=== PATIENT | female | born 1995 | race Caucasian/White ===

== ENCOUNTER 2024-12-27 19:25 | Emergency (ER) | payer OTHER, SELFPAY ==
--- OUTSIDE RECORDS SUMMARY | 2024-12-27 19:27 | XMS_ITS | Clinical Summary ---
Author Organization [facility] Care Team Providers Care Vp Production Name Role Phone Unavailable Primary Care Provider Unavailabl e Social History Tobacco Use Types Packs/Day Years Used Date Smoking Tobacco: Never Assessed Comments Unknown Sex and Gender Information Value Date Recorded Sex Assigned at Not on file Legal Sex Female 2:23 PM RECEIVING SUPERVISOR Gender Identity Not on file Sexual Orientation Not on file Plan of Treatment Health Maintenance Due Date Last Done Comments Hepatitis C Virus (HCV) Screening 1996 TdaP Immunization 1996 Hepatitis B Immunization (1 of 3 - 19+ 3-dose series) 08/27/2015 Pap Smear 2017 Influenza Immunization (#1) 2024 SARS-COV-2 Immunization ( season) 2024 Respiratory Syncytial Virus (RSV) Immunization (Adult) (1 - 1-dose 75+ series) 08/27/2071 Meningococcal Immunization (ACWY) Aged Out No longer eligible based on patient's age to complete this topic Pneumococcal Immunization Combined Aged Out No longer eligible based on patient's age to complete this topic Rotavirus Immunization Aged Out No lo nger eligible based on patient's age to complete this topic
--- OUTSIDE RECORDS SUMMARY | 2024-12-27 19:27 | XMS_ITS | Clinical Summary ---
Author Organization [facility] Address [address] [place] [address] Phone Care Team Providers Care Laundry Superintendent Name Role Phone Duy Hough MD Primary Care Provider +1- [phone] Allergies Active Allergy Reactions Criticality Noted Date Comments Cefprozil Hives High 02/10/2013 Medications escitalopram (LEXAPRO) 10 mg Oral tablet Take 15 mg by mouth daily. Active cetirizine (ZYRTEC) 10 mg Oral tablet Take 10 mg by mouth daily. Active Levonorgestrel- Ethinyl Estrad 0.15-30 mg-mcg Tablet, Dose Pack, 3 Months 4 Active FLUTICASONE PROPIONATE (FLONASE BOTH NOSTRIL) Administer in each nostril Continuous as needed. 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 Gender Identity Not on file Sexual Orientation Not on file Last Filed Vital Signs Vital Sign Reading Time Taken Comments Blood Pressure 108/64 12/10/2013 2:52 PM CDT Pulse 80 02/10/2013 3:58 AM CDT Temperature 37.1 C (98.8 F) 02/10/2013 3:58 AM CDT Respiratory Rate 16 02/10/2013 3:58 AM CDT Oxygen Saturation 96% 02/10/2013 3:58 AM CDT Inhaled Oxygen Concentration - - Weight 57.6 kg (127 lb) 12/10/2013 2:52 PM CDT Height 165.1 cm (5' 5) 12/10/2013 2:52 PM CDT Body Mass Index 21.13 12/10/2013 2:52 PM CDT Plan of Treatment Health Maintenance Due Date Last Done Comments DTAP/TDAP/TD VACCINES (1 - Tdap) 08/27/2015 HEPATITIS B VACCINES (1 of 3 - 19+ 3-dose series) 08/27/2015 CERVICAL CANCER SCREENING 2017 HPV/Cotest (21-29) 2017 PAP SMEAR 2017 INFLUENZA VACCINE (#1) 2025 HPV VACCINES Aged Out No longer eligi ble based on patient's age to complete this topic Insurance [facility] [id number] [address] [place] OPEN ACCESS Care Teams Laundry Superintendent Relationship Specialty Start Date End Date Duy Hough MD PCP - General Pediatrics 11/13/12
--- OUTSIDE RECORDS SUMMARY | 2024-12-27 19:27 | XMS_ITS | Clinical Summary ---
Author Organization [facility] Address [address] [place] [address] Care Team Providers Care Tobacco Prizer Name Role Phone Paz Oneill APRN-PACKAGING SPECIALIST Primary Care Provider + Source Comments [facility],non[facility] Affiliates and Associated Physician Practices is amultiple site organization consisting of ambulatory clinics and hospital sitesin [place], [place], [place] and [place]. This disclosure is being madepursuant to the Care Everywhere program and may not contain all information available regarding this patient. Last updated 18.[facility] Allergies Active Allergy Reactions Criticality Noted Date Comments Cefprozil Rash Low 09/19/2012 Medications * This document contains information received from the source organization and may not represent a complete record from that organization. * Be aware that medications may not be up to date on this document. Alwaysverify current medications with the patient. cetirizine (ZYRTEC) 10 MG tablet Take 1 (one) tablet by mouth once daily Active 1-20 MG-MCG(24) tablet Take 1 (one) tablet by mouth once daily 03/06/20 23 Active gabapentin (Neurontin) 300 MG capsuleIndicatio ns:Fibromyalgia Syndrome Take 1 (one) capsule to 2 (two) capsules by mouth every morning AND 1 (one) capsule to 2 (two) capsules every afternoon. Reasons: Fibromyalgia Syndrome. 120 capsule 5 11/27/19 24 Active levothyroxine (Synthroid) 100 MCG tabletIndication s:Hypothyroidism , unspecified type levothyroxine 100 mcg tablet TAKE 1 TABLET BY MOUTH EVERY DAY 90 tablet 03/04/20 24 Active ALPRAZolam (Xanax) 1 MG tablet Take 1 (one) tablet by mouth 3 times daily as needed 03/28/20 24 Active traMADol (Ultram) 50 MG tabletIndication s:Primary fibromyalgia syndrome May take 0.5 (one-half) tablet to 1 (one) tablet by mouth 2 times daily as needed for Pain. May also take 1 (one) tablet nightly as needed for Pain. 04/25/20 24 Active QUEtiapine (SEROquel) 25 MG tabletIndication s:Bipolar II disorder (HCC) Take 1 (one) tablet by mouth at bedtime Along with 100mg tablet for total daily dose of 125mg 90 tablet 11/19/19 25 Active buPROPion SR 12hr (Wellbutrin-SR) 100 MG tabletIndication s:Depressive Phase Bipolar Mood Disorder,Major Depressive Disorder Take 1 (one) tablet by mouth every morning Replaces use of 75 mg tablets. Reasons: Depressive Phase of Manic-Depression, Major Depressive Disorder 30 tablet 11/21/19 25 Active QUEtiapine (SEROquel) 100 MG tabletIndication s:Bipolar Mood Disorder Take 1 (one) tablet by mouth at bedtime Along with 25mg tablet for total daily dose of 125mg Reasons: Manic-Depression 90 tablet 11/21/19 25 Active traZODone (Desyrel) 100 MG tabletIndication s:Insomnia Take 1.5 (one and one-half) tablets by mouth at bedtime Reasons: Trouble Sleeping 135 tablet 11/29/19 25 Active traZODone (Desyrel) 100 MG tabletIndication s:Insomnia Take 1.5 (one and one-half) tablets by mouth at bedtime Reasons: Trouble Sleeping 135 tablet 09/04/19 25 025 Discontin ued(Reord er) Active Problems Problem Noted Date Diagnosed Date Primary fibromyalgia syndrome 01/17/2022 Overview (01/17/2022): Clinically suspect possible fibromyalgia syndrome for musculoskeletal pain symptoms, fatigue and non restorative sleep. Try duloxetine in place of sertraline. Bipolar II disorder 10/10/2018 Overview (10/10/2018): Was diagnosed during neuropsych testing by Dr. 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 Overview (10/10/2018): Overview: Description: high TPO and Tg Ab Hypothyroidism 07/17/2014 Overview (03/19/2015): 05/07/2014 - [facility] - Na 138 mmol/L, K 3.9 mmol/L, Cl 105 mmol/L, CO2 19 mmol/L, BUN 9 mg/dL, creatinine 0.64 mg/dL, glucose 89 mg/dL, calcium 9.2 mg/dL, alkaline phosphatase 64 U/L, SGOT (AST) 12 U/L, SGPT (ALT) 8 U/L, total protein 6.8 g/dL, albumin 4.2 g/dL, total bilirubin 0.3 mg/dL; tissue transglutaminase antibody 1 U (< 4), free T4 1.1 ng/dL (0.9-1.4), TSH 4.59 uIU/L (0.5-4.3); ESR 6 mm/hr; WBC 6.2 K, hemoglobin 11.8 g/dL, hematocrit 37.8 %, ples 340 K; 05/13/14 - [facility] - TSH 5.34 uIU/mL (0.45-4.50) Assessment & Plan (07/17/2014 3:37 PM ARTIST'S MODEL): Etiology unclear. 1. L-thyroxine 0.025 mg daily. 2. Obtain serum thyroid autoantibodies (thyroid peroxidase & thyroglobulin) - rule out evolving autoimmune thyroiditis. 3. I will contact Nanda Singh's mother by telephone (number: [phone]) with the test results after I have received them and make the necessary medication dose adjustments. 4. See website: [email or web address].org for patient information handouts - Hypothyroidism 5. I reviewed my provisional impressions and recommendations with mother and she was in agreement. 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 Still having significant cramping which interferes with day to day living. Starts 3 days prior to period and lasting for 3 days. Mother has hx of endometriosis Plan: Refer to ob-packaging specialist for evaluation and work-up of possible endometriosis Anxiety 09/19/2012 Assessment & Plan (07/31/2013 4:44 PM ARTIST'S MODEL): Feels that anxiety is currently well controlled. Plan: Continue current therapy Resolved Problems Problem Noted Date Diagnosed Date Resolved Date Tremor 03/17/2022 08/12/2024 Overview (03/17/2022): May be anxiety related and less likely due to use of SSRI medication +trazodone. Suggest neurology evaluation. High risk medications (not a nticoagulants) long-term use 11/06/2018 05/23/2024 Chronic rhinitis 11/12/2015 08/12/2024 Rash and nonspecific skin eruption 01/24/2014 05/23/2024 Acne vulgaris 09/19/2012 05/23/2024 Encounters Date Type Department Care Team Description 11/28/2024 Refill [facility] - Rheumatology [address], [address] [place] [address] Jesus Lai, DO MEDICATION REFILL 11/20/2024 Refill [facility] - Rheumatology [address] [place] [address], [address] [place] [address] Jesus Lai DO MEDICATION REFILL 11/18/2024 Refill [facility] - Rheumatology [address] [place] [address], [address] [place] [address] Jesus Lai DO MEDICATION REFILL 11/04/2024 11:20 AM CDT Office Visit [facility] Rheumatology [address] [place] [address], [address] [place] [phone] Jesus Lai DO Primary fibromyalgia syndrome (Primary Dx); Severe episode of recurrent major depressive disorder, without psychotic features (HCC) 10/24/2024 Refill [facility] Rheumatology [address] [place] [address], [address] [place] [phone] Jesus Lai DO MEDICATION REFILL from Last 3 Months Immunizations Immunization Administration Dates Next Due Human Papilloma Virus Quadrivalent Vaccine 07/31,11/14/2012 Family History Medical History Relation Name Comments Thyroid Disease Maternal Aunt goiter, hyp othyroidism CAD (Coronary Artery Disease) Maternal Grandfather Lupus Maternal Grandfather Thyroid Disease Maternal Grandfather Cancer Maternal Grandmother Asthma Mother Endometriosis Mother Thyroid Disease Mother CAD (Coronary Artery Disease) Paternal Grandfather Arthritis - Rheumatoid Paternal Grandmother Relation Name Status Comments Maternal Aunt Maternal Grandfather Maternal Grandmother Mother Paternal Grandfather Paternal Grandmother Social History Tobacco Use Types Packs/Day Years Used Date Smoking Tobacco: Never Smokeless Tobacco: Never Tobacco Cessation:Counseling Given: Not Answered Alcohol Use Standard Drinks/Week Comments Yes 12 (1 standard drink = 0.6 oz pu re alcohol) PHQ-2 Answer Date Recorded Patient Health Questionnaire-2 Score 1 11/04/2024 Comments No Sex and Gender Information Value Date Recorded Sex Assigned at Not on file Legal Sex Female 9:12 AM CDT Gender Identity Not on file Sexual Orientation Not on file Last Filed Vital Signs Vital Sign Reading Time Taken Comments Blood Pressure 112/70 11/04/2024 11:11 AM CDT Pulse 87 11/04/2024 11:11 AM CDT Temperature 36.1 C (97 F) 11/04/2024 11:11 AM CDT Respiratory Rate 16 11/04/2024 11:11 AM CDT Oxygen Saturation 98% 11/04/2024 11:11 AM CDT Inhaled Oxygen Concentration - - Weight 56.7 kg (125 lb) 11/04/2024 11:11 AM CDT Height 165.1 cm (5' 5) 04/25/2024 8:15 AM ARTIST'S MODEL Body Mass Index 20.8 04/25/2024 8:15 AM ARTIST'S MODEL Plan of Treatment Upcoming Encounters Date Type Department Care Team (Late st Contact Info) Description 02/04/2025 8:00 AM CDT Office Visit [facility] - Rheumatology [address], [address] [place] [address] Jesus Lai DO [address] [place] [address] Health Maintenance Due Date Last Done Comments HPV VACCINE (3 - 3-dose series) 10/23/2013 07/31/2013, 11/14/2012 HEPATITIS C SCREENING 08/22/2014 DTAP/TDAP/TD VACCINES (1 - Tdap) 08/27/2015 HEPATITIS B VACCINE (1 of 3 - 19+ 3-dose series) 08/27/2015 PAP SMEAR 2017 COVID-19 VACCINE (1 - season) 2024 INFLUENZA VACCINE (#1) 2025 5, 06/19/2014, 05/07/2014, Additional history exists ZOSTER VACCINE (1 of 2) 2046 HIV SCREENING Completed 05/09/2017 HIB VACCINE Aged Out No longer eligi ble based on patient's age to complete this topic MENINGOCOCCAL (Group B) VACCINE SHARED DECISION-MAKING Aged Out No longer eligible based on patient's age to complete this topic MENINGOCOCCAL GROUPS A/C/Y/W VACCINE Aged Out No longer eligible based on patient's age to complete this topic PNEUMOCOCCAL VACCINE Aged Out No long er eligible based on patient's age to complete this topic Procedures Procedure Name Priority Date/Time Associated Diagnosis Comments HIV-1 HIV-2 ANTIBODY W REFLX Routine 05/09/2017 3:51 PM ARTIST'S MODEL from Last 3 Months or Most Recently Relevant to Health Maintenance Results * HIV-1 HIV-2 ANTIBODY W REFLX (05/09/2017 3:51 PM ARTIST'S MODEL) HIV 1 Antibody Negative Negative [facility] HIV-2 Antibody Negative Negative [facility] Comment: Negative for HIV-1 and HIV-2 antibodies See RNA Reflex. Blood specimen (specimen) BLOOD SPECIMEN / Unknown 05/09/2017 3:51 PM ARTIST'S MODEL 05/09/2017 Narrative [facility] - 05/13/2017 8:07 PM ARTIST'S MODEL Performed at: - [facility] [address], [place] [id number] French Edge Operator: Justin Fuentes PhD, Phone: [phone] us Gabriela Guzman MD LAB - SEROLOGY ORDERABLES Final Result Performing Organization Address City/State/[facility] Co de Phone Number [facility] [address] [place] [address], [facility] from Last 3 Months or Most Recently Relevant to Health Maintenance Insurance [place] [id number] [facility] [place] [address] Care Teams Tobacco Prizer Relationship Specialty Start Date End Date Paz Oneill, CHIEF RESOURCE OFFICER-PACKAGING SPECIALIST [address] [place] [address] PCP - General Nurse Practitioner Family 09/09/24
[2024-12-27 19:44] VITALS: BP 121/97; PULSE 82; RESP 15; TEMP 36.5; O2SAT 99
--- NOTE | 2024-12-27 21:28 | PC.NURSE ---
PT STATES HER HAND FEELS BETTER AND SHE WISHES TO LEAVE PRIOR TO EXAMINATION
--- OUTSIDE RECORDS SUMMARY | 2024-12-27 21:51 | XMS_ITS | Clinical Summary ---
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
--- OUTSIDE RECORDS SUMMARY | 2024-12-27 21:51 | XMS_ITS | Clinical Summary ---
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
--- OUTSIDE RECORDS SUMMARY | 2024-12-27 21:51 | XMS_ITS | Clinical Summary ---
Author Organization [facility] Address [address] [facility] [place] [address] Care Team Providers Care Bag Worker Name Role Phone Paz Oneill APRN-UNDERCOVER AGENT Primary Care Provider + Source Comments [facility] Affiliates and Associated Physician Practices is amultiple site organization consisting of ambulatory clinics and hospital sitesin [place], [place] and [place]. This disclosure is being madepursuant to the Care Everywhere program and may not contain all information available regarding this patient. Last updated 18.[facility] Allergies Active Allergy Reactions Criticality [...] diagnosed during neuropsych testing by Dr. Aparicio ([facility]) [place] Trichilemmal cyst 03/26/2017 José Luis's [...] (0.45-4.50) Assessment & Plan (07/17/2014 3:37 PM PACKER AND CARRY OUT): Etiology unclear. 1. L-thyroxine 0.025 mg daily. 2. Obtain serum thyroid autoantibodies (thyroid peroxidase & thyroglobulin) - rule out evolving autoimmune thyroiditis. 3. I will contact Nanda Singh's mother by telephone (number: [phone]) with the test results after I have [...] 2-3 Assessment & Plan (07/31/2013 4:44 PM PACKER AND CARRY OUT): Not currently controlled with OCPs. Still having significant cramping which interferes with day to day living. Starts 3 days prior to period and lasting for 3 days. Mother has hx of endometriosis Plan: Refer to ob-supply chain business analyst for evaluation and work-up of possible endometriosis Anxiety 09/19/2012 Assessment & Plan (07/31/2013 4:44 PM PACKER AND CARRY OUT): Feels that anxiety is currently well controlled. [...] Type Department Care Team Description 11/28/2024 Refill [facility] - Rheumatology [address], [address] [place] [address] Jesus Lai, DO MEDICATION REFILL 11/20/2024 Refill [facility] - Rheumatology [address] [place] [address], [address] [place] [address] Jesus Lai DO MEDICATION REFILL 11/18/2024 Refill [facility] - Rheumatology [address] [place] [address], [address] [place] [address] Jesus Lai DO MEDICATION REFILL 11/04/2024 11:20 AM CDT Office Visit [facility] Rheumatology [address] [place] [address], [address] [place] [phone] Jesus Lai DO Primary fibromyalgia syndrome (Primary Dx); Severe episode of recurrent major depressive disorder, without psychotic features (HCC) 10/24/2024 Refill [facility] Rheumatology [address] [place] [address], [address] [place] [phone] Jesus Lai DO MEDICATION REFILL from Last [...] 165.1 cm (5' 5) 04/25/2024 8:15 AM PACKER AND CARRY OUT Body Mass Index 20.8 04/25/2024 8:15 AM PACKER AND CARRY OUT Plan of Treatment Upcoming Encounters Date Type Department Care Team (Late st Contact Info) Description 02/04/2025 8:00 AM CDT Office Visit [facility] - Rheumatology [address], [address] [place] [address] Jesus Lai DO [address] [place] [address] Health Maintenance Due Date Last [...] ANTIBODY W REFLX Routine 05/09/2017 3:51 PM PACKER AND CARRY OUT from Last 3 Months or Most Recently Relevant to Health Maintenance Results * HIV-1 HIV-2 ANTIBODY W REFLX (05/09/2017 3:51 PM PACKER AND CARRY OUT) HIV 1 Antibody Negative Negative [facility] HIV-2 Antibody Negative Negative [facility]ation [facility] Comment: Negative for HIV-1 and HIV-2 antibodies See RNA Reflex. Blood specimen (specimen) BLOOD SPECIMEN / Unknown 05/09/2017 3:51 PM PACKER AND CARRY OUT 05/09/2017 Narrative [facility] - 05/13/2017 8:07 PM PACKER AND CARRY OUT Performed at: - [facility] [address] [place], [place] [id number] Clinical Laboratory Technologist: Justin Fuentes PhD, Phone: [phone] us Gabriela Guzman MD LAB - SEROLOGY ORDERABLES Final Result Performing Organization Address City/State/[facility] Co de Phone Number [facility] [address] [place] [address], [facility] from Last 3 Months or Most Recently Relevant to Health Maintenance [place] [place] [address] [id number] Care Teams Bag Worker Relationship Specialty Start Date End Date Paz Oneill, PARTNER MANAGER-UNDERCOVER AGENT [address] [place] [address] PCP - General Nurse Practitioner Family 09/09/24
== END 2024-12-27 21:28 | disposition left against medical advice (07) ==
DX: T23.04 Burn of unspecified degree of multiple fingers (nail), including thumb (principal)
CPT/HCPCS: 99199